=== PATIENT | male | born 1955 | race African-American/Black ===

== ENCOUNTER 2024-03-18 23:14 | Observation (INO) | payer MEDICARE ==
[2024-03-19 00:05] VITALS: BMI 27.6
[2024-03-19] MEDS ORDERED: traMADol HCl 50 MG TAB PO PRN (00:27)
[2024-03-19] MEDS ORDERED: Acetaminophen 325 MG TAB PO PRN (00:27)
[2024-03-19] MEDS ORDERED: busPIRone HCl 10 MG TAB PO PRN (02:27)
[2024-03-19] MEDS ORDERED: hydrALAZINE 25 MG TAB PO PRN (02:28)
[2024-03-19 04:10] LABS: #Basophils Less than 0.03 10x3/uL (0.0-0.2); %Basophils 0.3 % (0.0-1.0); %Eosinophils 2.7 % (0.0-10.0); %Lymphocytes 52.2 % (21.0-51.0); %Neutrophils 32.8 % (42.0-75.0); ALT (SGPT) 23 U/L (8-55); AST (SGOT) 26 U/L (5-34); Albumin 3.4 g/dL (3.4-4.8); Alkaline Phosphatase 77 U/L (40-110); Anion Gap 10 mmol/L (10-20); BUN (Urea Nitrogen) 11 mg/dL (8.4-25.7); Bilirubin, Total 0.4 mg/dL (0.2-1.2); Calc. Creatinine Clearance 117 mL/min (70-130); Calcium 8.2 mg/dL (7.8-10.44); Carbon Dioxide 25 mmol/L (23-31); Chloride 109 mmol/L (98-107); Estimated GFR 96; Globulin 2.9 g/dL (2.4-3.5); Glucose 94 mg/dL (80-115); Hematocrit 38.1 % (42.0-52.0); Hemoglobin 12.4 g/dL (14.0-18.0); Mean Corpuscular HGB CONC 32.5 g/dL (32.0-36.0); Mean Corpuscular Hemoglobin 28.7 pg (27.0-31.0); Mean Corpuscular Volume 88.2 fL (78.0-98.0); Platelet Count 172 10x3/uL (130-400); Potassium 3.9 mmol/L (3.5-5.1); Protein, Total 6.3 g/dL (5.8-8.1); RBC Distribution Width 12.4 % (11.5-14.5); Red Blood Cell (RBC) Count 4.32 mill/uL (4.70-6.10); Sodium 140 mmol/L (136-145)
[2024-03-19] MEDS: HYDROcodone/Acetaminophen 10/325 mg Tablet PO PRN (06:09)
[2024-03-19] MEDS: Nitroglycerin 2% Ointment 1 INCH/1 GM Packet TOP SCH (06:10)
[2024-03-19] MEDS: Tamsulosin HCl 0.4 MG CAP PO SCH (09:11)
[2024-03-19] MEDS: Aspirin Chewable 81 MG TAB PO SCH (09:11)
[2024-03-19] MEDS: Amlodipine 10 MG TAB PO SCH (09:12)
[2024-03-19] MEDS: Enoxaparin 40 MG (0.4 mL) SYRINGE SC SCH (09:12)
[2024-03-19] MEDS: Atorvastatin Calcium 40 MG TAB PO SCH (21:45)
[2024-03-20 04:03] LABS: #Basophils Less than 0.03 10x3/uL (0.0-0.2); %Basophils 0.6 % (0.0-1.0); %Eosinophils 2.9 % (0.0-10.0); %Lymphocytes 48.2 % (21.0-51.0); %Monocytes 12.1 % (0.0-10.0); %Neutrophils 36.2 % (42.0-75.0); Hematocrit 40.7 % (42.0-52.0); Hemoglobin 13.3 g/dL (14.0-18.0); Mean Corpuscular HGB CONC 32.7 g/dL (32.0-36.0); Mean Corpuscular Hemoglobin 28.3 pg (27.0-31.0); Mean Corpuscular Volume 86.6 fL (78.0-98.0); Mean Platelet Volume 10.9 fL (7.4-10.4); Platelet Count 169 10x3/uL (130-400); RBC Distribution Width 12.5 % (11.5-14.5)
[2024-03-20 04:12] LABS: Anion Gap 9 mmol/L (10-20); BUN (Urea Nitrogen) 9 mg/dL (8.4-25.7); Calc. Creatinine Clearance 108 mL/min (70-130); Calcium 8.3 mg/dL (7.8-10.44); Carbon Dioxide 25 mmol/L (23-31); Chloride 109 mmol/L (98-107); Estimated GFR 94; Glucose 93 mg/dL (80-115); Potassium 3.8 mmol/L (3.5-5.1); Sodium 139 mmol/L (136-145)
[2024-03-20] MEDS ORDERED: Regadenoson 0.4 MG/5 ML SYRINGE ONE (10:24)
[2024-03-20 15:37] VITALS: BP 150/74; TEMP 97.7
== END 2024-03-20 21:36 | disposition home or self-care (01) ==
LOC: 2SE 23:42
PROVIDERS: ADMIT Internal Medicine; ATTEND Internal Medicine
DX: R07.9 Chest pain, unspecified (principal); R53.1 Weakness; R20.0 Anesthesia of skin; I20.9 Angina pectoris, unspecified; I16.0 Hypertensive urgency; I10 Essential (primary) hypertension; E78.5 Hyperlipidemia, unspecified; N40.0 Benign prostatic hyperplasia without lower urinary tract symptoms; F41.9 Anxiety disorder, unspecified; G89.29 Other chronic pain; Z79.82 Long term (current) use of aspirin; Z79.899 Other long term (current) drug therapy
CPT/HCPCS: 78452; 80048; 80053; 85025 ×2; 85379; 93017; 96372; A9500; G0378 ×2; J1650; J2785 ×2; 36415